=== PATIENT | male | born 2000 | race Caucasian/White ===

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

== ENCOUNTER 2021-03-02 13:06 | Outpatient (REF) | payer OTHER, SELFPAY ==
[2021-03-02 14:22] LABS: Influenza A PCR NEGATIVE (Negative); Influenza B PCR NEGATIVE (Negative); Resp Syncy Virus RNA Qual PCR NEGATIVE (Negative); SARS COV2 PCR INHOUSE NEGATIVE (Negative)
== END 2021-03-02 13:07 | disposition home or self-care (01) ==
LOC: HO.LNP 13:06
PROVIDERS: Visit Provider Internal Medicine
DX: Z20.822 Contact with and (suspected) exposure to COVID-19 (principal)
CPT/HCPCS: 0241U

== ENCOUNTER 2022-03-11 13:29 | Outpatient (REF) | payer OTHER, SELFPAY ==
[2022-03-13 11:34] LABS: H Pylori Breath Test Negative (Negative)
== END 2022-03-11 13:30 | disposition home or self-care (01) ==
LOC: HO.LAB 13:29
PROVIDERS: PCP Internal Medicine; Visit Provider Internal Medicine Gastroenterology
DX: R63.4 Abnormal weight loss (principal); R10.33 Periumbilical pain; R62.7 Adult failure to thrive; K90.9 Intestinal malabsorption, unspecified; Z11.0 Encounter for screening for intestinal infectious diseases
CPT/HCPCS: 36415; 83013

== ENCOUNTER 2022-05-05 07:37 | Day surgery (SDC) | payer OTHER, SELFPAY ==
[2022-04-29 15:27] VITALS: BMI 21.2
--- NOTE | 2022-05-04 12:40 | P.CONAN_ITS ---
Documented by User: Courtney Storm NP 05/04/22 12:40 HPI - Anesthesia Eval Consult details Narrative: 21yo M for Upper Endoscopy [facility] Active Problems Active Problems: All Active Problems (Updated 04/29/22 @ 15:22 by Giselle Acevedo, SANTOS) Failure to thrive in adult (Acute) Weight loss (Acute) Malabsorption (Acute) Elevated immunoglobulin E level (Acute) Past Medical History Medical History Social anxiety disorder Surgical History Surgical History Surgical history unknown Social History Social History Household Members: Family Alcohol intake: never Patient Tobacco Use Status: Never used Tobacco Use of substances other than those prescribed or required for medical reasons: No Are you DNR?: No Advance Directives: No Advance Directives Information Provided: Yes Meds Allergies Allergy/AdvReac Type Severity Reaction Status Date / Time seafood Allergy Itching Verified 05/05/22 08:11 Home Medications Medication Instructions Recorded Confirmed Last Taken Type cyproheptadine 4 mg tablet 4 mg PO BEDTIME 03/11/22 04/29/22 Unknown History hydroxyzine HCl 25 mg tablet 25 mg PO DAILY 03/11/22 04/29/22 Unknown History multivitamin 1 tab PO DAILY 03/11/22 04/29/22 Unknown History trazodone 50 mg tablet 50 - 100 mg PO BEDTIME 03/11/22 04/29/22 Unknown History Exam Exam Date and Time: May 04, 2022 1240 Height,Weight and Vital Signs: Height 5 ft 2 in Weight 52.617 kg Assessment and Plan Assessment Anesthesia Assessment: Chart Reviewed Documented by User: Maria C Herman MD 05/05/22 08:39 PMFSH Past Medical History Medical History Social anxiety disorder Surgical History Surgical History Surgical history unknown History of Problems with Anesthesia: No Social History Social History Household Members: Family Alcohol intake: never Patient Tobacco Use Status: Never used Tobacco Use of substances other than those prescribed or required for medical reasons: No Are you DNR?: No Advance Directives: No Advance Directives Information Provided: Yes Meds Allergies Allergy/AdvReac Type Severity Reaction Status Date / Time seafood Allergy Itching Verified 05/05/22 08:11 Home Medications Medication Instructions Recorded Confirmed Last Taken Type cyproheptadine 4 mg tablet 4 mg PO BEDTIME 03/11/22 04/29/22 Unknown History hydroxyzine HCl 25 mg tablet 25 mg PO DAILY 03/11/22 04/29/22 Unknown History multivitamin 1 tab PO DAILY 03/11/22 04/29/22 Unknown History trazodone 50 mg tablet 50 - 100 mg PO BEDTIME 03/11/22 04/29/22 Unknown History Exam Airway Mallampati Class: II TM Dist: >3cm Neck ROM: Full Loose/Missing/Broken Teeth: No Heart: RRR Lungs: CTA Assessment and Plan Assessment Anesthesia Assessment: Anesthesia Plan Discussed Final Anesthetic Review History of Problems with Anesthesia: No NPO: Yes ASA Class: II Final Preanesthetic Review: Meds/Allgs Chart Reviewed, Consent Obtained/Reviewed and Anes Risks/Benef Reviewed Patient Risk: Low Procedure Risk: Intermediate Anesthetic Plan Anesthetic Plan: MAC: Disposition: Standard PACU
[2022-05-05 07:46] VITALS: BMI 17.4
[2022-05-05 07:59] VITALS: BP 125/78; PULSE 86; RESP 16; TEMP 36.7; O2SAT 99
[2022-05-05] MEDS: Lactated Ringers 1,000 ML 100 ML IVCONT (08:22)
--- NOTE | 2022-05-05 08:37 | MHC.SHP ---
Pre-Procedural Eval Section A Date of Service: 05/05/22 Section B Chief Complaint: Adult failure to thrive, weight loss, malabsorptio Relevant Family History (Specify if Yes): No Relevant Social History: None Present Medications: see Short Stay Collaborative assessment Medical History: Significant History (Social anxiety disorder) History of Previous Operations: No relevant previous surgery Allergies: Allergies Allergy/AdvReac Type Severity Reaction Status Date / Time seafood Allergy Itching Verified 05/05/22 08:11 Review of Systems Sugical H&P ROS: Negative: Constitution, Cardiovascular, Respiratory, Neurological, Psychiatric, Hem-Onc, Allergic/Immunologic, Gastrointestinal, Genitourinary, Musculoskeletal, Integumentary, Endocrine and Eyes/Ears/Nose/Throat Exam Surgical H&P Exam: Normal: HEENT, Normal: Heart, Normal: Lungs, Normal: Extremities, Normal: Abdomen, Normal: Skin and Normal: Neurological Plan Diagnosis/Plan: Unchanged I have reviewed the history and physical and performed a pertinent physical examination on my patient. No changes have occurred unless specified.
--- NOTE | 2022-05-05 08:38 | W.PM.OPN ---
Operative Note Operative Note Date of Service: 05/05/22 Narrative: Procedure Description: EGD Indication: weight loss Anesthesia: MAC FLEXIBLE TRANSORAL UPPER GASTROINTESTINAL ENDOSCOPY UPPER ENDOSCOPY Consent: Indications for the procedure and potential complications of bleeding, perforation, reaction to medications and missed diagnosis were discussed with the patient and informed consent was obtained. Instrument: Olympus GIF H 190 J mid size upper endoscope Monitoring: Vital signs and clinical assessment, continuous EKG monitoring, Pulse oximetry, Carbon Dioxide monitoring and blood pressure monitoring were done throughout the procedure. Procedure: The patient was placed in the left lateral decubitis position and pre-procedure medications were administered and a bite block was placed. The endoscope was inserted into the mouth and advanced under direct vision to the third part of duodenum. A careful inspection was made as the upper endoscope was withdrawn including a retroflexed examination of the proximal stomach; Findings and interventions are described below. Findings: Larynx:normal Esophagus: GE junction at 42 cm, diaphragm hiatus at 42 cm, bogginess at GEJ, bx taken as well as from distal and proximal esophagus Stomach: Patchy gastric erythema. Biopsies were obtained. Grade 2 flap valve on retroflexed examination of the cardia. there appeared to be reduced motility. 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
[2022-05-05 09:16] VITALS: BP 99/40; PULSE 75; RESP 16; TEMP 36.2; O2SAT 98
[2022-05-05 09:31] VITALS: BP 105/45; PULSE 71; RESP 17; O2SAT 97
[2022-05-05 09:46] VITALS: BP 103/47; PULSE 66; RESP 16; O2SAT 96
[2022-05-05 10:08] VITALS: BP 111/65; PULSE 88; RESP 17; TEMP 36.1; O2SAT 99
== END 2022-05-05 10:46 | disposition home or self-care (01) ==
PROVIDERS: PCP Internal Medicine; Visit Provider Internal Medicine Gastroenterology
PROC: 0DJ08ZZ Inspection of Upper Intestinal Tract, Via Natural or Artificial Opening Endoscopic (ICD-10-PCS; CPT 43235; principal; 2022-05-05 08:30)
DX: R62.7 Adult failure to thrive (principal); K90.9 Intestinal malabsorption, unspecified; R63.4 Abnormal weight loss; K20.80 Other esophagitis without bleeding; K29.60 Other gastritis without bleeding; K44.9 Diaphragmatic hernia without obstruction or gangrene; R68.81 Early satiety; F40.10 Social phobia, unspecified; Z79.899 Other long term (current) drug therapy
CPT/HCPCS: 43239; 88305; 88313; 88341; 88342